=== PATIENT | male | born 1980 | race Caucasian/White ===

== ENCOUNTER 2020-05-07 16:01 | Outpatient (CLI) | payer OTHER | END 2020-05-07 16:03 | disposition home or self-care (01) | LOC: PPH VACUNA 16:01 | DX: Z23 Encounter for immunization (principal) ==

== ENCOUNTER 2021-03-18 15:30 | Outpatient (CLI) | payer OTHER | END 2021-03-18 15:45 | disposition home or self-care (01) | LOC: PPH VACUNA 15:30 | PROVIDERS: ATTEND Emergency Medicine Pediatric Emergency Medicine | DX: Z23 Encounter for immunization (principal) ==

== ENCOUNTER 2021-04-26 12:18 | Emergency (ER) | payer OTHER ==
[~2021-04-26] VITALS: Ht 180.3 cm; Wt 108.9 kg
== END 2021-04-26 15:04 ==
LOC: ER 12:18
DX: M62.838 Other muscle spasm (principal); S89.92XA Unspecified injury of left lower leg, initial encounter; W10.8XXA Fall (on) (from) other stairs and steps, initial encounter; Y92.019 Unspecified place in single-family (private) house as the place of occurrence of the external cause